=== PATIENT | male | born 1995 | race Caucasian/White ===

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

== ENCOUNTER 2018-12-20 17:23 | Emergency (ER) | payer OTHER ==
[~2018-12-20] VITALS: Ht 193 cm; Wt 129.3 kg
[~2018-12-20 17:23] MED LIST: AMOX1TAB61 PO
--- NOTE | 2018-12-20 17:42 | PHYS DOC ---
Past Medical History Past Medical History: Other Additional Past Medical Histor: "special needs" ([employer]) Past Surgical History: No Surgical History (CHARLIE MACARIO APRN) Alcohol Use: None Drug Use: None (AUSTINCHARLIE Foss APRN) Adult General Chief Complaint Chief Complaint: COUGH HPI HPI Patient is a 23 year old male who presents today ED today complaining of cough nasal congestion and a sore throat that began 3 days ago. Patient denies any fever. (RENALDOCHARLIE APRN) Review of Systems Review of Systems Constitutional: Denies fever or chills [] Eyes: Denies change in visual acuity, redness, or eye pain [] HENT: Reports nasal congestion and sore throat [] Respiratory: Reports cough, denies shortness of breath [] Cardiovascular: No additional information not addressed in HPI [] GI: Denies abdominal pain, nausea, vomiting, bloody stools or diarrhea [] : Denies dysuria or hematuria [] Musculoskeletal: Denies back pain or joint pain [] Integument: Denies rash or skin lesions [] Neurologic: Denies headache, focal weakness or sensory changes [] All other systems were reviewed and found to be within normal limits, except as documented in this note. ([employer]) Allergies Allergies Allergies Coded Allergies Type Severity Reaction Last Updated Verified No Known Drug Allergies 09/03/16 No (ELVA KIM MD) Physical Exam Physical Exam Constitutional: Well developed, well nourished, no acute distress, non-toxic appearance. [] HENT: Normocephalic, atraumatic, bilateral external ears normal, oropharynx moist, no oral exudates, nose normal. [] Eyes: PERRLA, EOMI, conjunctiva normal, no discharge. [] Neck: Normal range of motion, no tenderness, supple, no stridor. [] Cardiovascular:Heart rate regular rhythm, no murmur [] Lungs & Thorax: Bilateral breath sounds clear to auscultation [] Abdomen: Bowel sounds normal, soft, no tenderness, no masses, no pulsatile masses. [] Skin: Warm, dry, no erythema, no rash. [] Back: No tenderness, no CVA tenderness. [] Extremities: No tenderness, no cyanosis, no clubbing, ROM intact, no edema. [] Neurologic: Alert and oriented X 3, normal motor function, normal sensory function, no focal deficits noted. [] Psychologic: Affect normal, judgement normal, mood normal. [] (CHARLIE MACARIO APRN) Current Patient Data Vital Signs Vital Signs Date Time Temp Pulse Resp B/P (MAP) Pulse Ox O2 Delivery O2 Flow Rate FiO2 12/20/18 17:43 98.6 83 16 127/63 (84) 97 Room Air 98.6 (ELVA KIM MD) Lab Values Laboratory Tests Test 12/20/18 18:00 Group A Streptococcus Rapid Negative (NEGATIVE) (ELVA KIM MD) EKG EKG [] (CHARLIE MACARIO APRN) Radiology/Procedures Radiology/Procedures [] (CHARLIE MACARIO APRN) Course & Med Decision Making Course & Med Decision Making Pertinent Labs and Imaging studies reviewed. (See chart for details) This is a 23-year-old male patient presenting to the ED to stay with symptoms consistent of viral illness including cough nasal congestion and a sore throat for 3 days. Patient is afebrile. Negative rapid strep. Supportive care measures recommended. Follow-up with primary care doctor in 1-2 weeks. (CHARLIE MACARIO APRN) Dragon Disclaimer Dragon Disclaimer This electronic medical record was generated, in whole or in part, using a voice recognition dictation system. (CHARLIE MACARIO APRN) Departure Departure Impression: Primary Impression: Cough Additional Impressions: URI (upper respiratory infection) Viral pharyngitis Disposition: 01 HOME, SELF-CARE Condition: STABLE Referrals: JESUS ALLISON MD (PCP) follow up in 1-2 weeks Patient Instructions: Cough, Adult, Lirh-ev-Iael, Upper Respiratory Infection, Adult, Mpvt-qf-Vkyg, Viral and Bacterial Pharyngitis Additional Instructions: You were evaluated in the emergency room for symptoms consistent of a viral illness. Please use [id number] cold medications as needed. You can take Tylenol/Motrin for pain including body aches and fever, follow-up with your own doctor in 1-2 weeks Problem Qualifiers Additional Impressions: URI (upper respiratory infection) URI type: unspecified URI Qualified Codes: J06.9 - Acute upper respiratory infection, unspecified CHARLIE MACARIO APRN Dec 20, 2018 17:42 ELVA KIM MD Dec 21, 2018 18:14
[2018-12-20 17:43] VITALS: BP 127/63
== END 2018-12-20 18:27 | disposition home or self-care (01) ==
LOC: ER 17:23
DX: J02.8 Acute pharyngitis due to other specified organisms (principal); B97.89 Other viral agents as the cause of diseases classified elsewhere
CPT/HCPCS: 87070; 87880; 99283

== ENCOUNTER → 2019-02-25 | Outpatient (CLI) | payer OTHER ==
[~2019-02-25] MED LIST changes: +CIPR500T94 PO; +DICY20TA3 PO; +METR500T PO; +ONDA4TAB12 PO
[2019-02-25 10:13] LABS: ALBUMIN 3.7 g/dL (3.4-5.0); CALCIUM 9.2 mg/dL (8.5-10.1); CREATININE 1.1 mg/dL (0.7-1.3); GFR 84.5; POTASSIUM 4.1 mmol/L (3.5-5.1); TOTAL BILIRUBIN 0.4 mg/dL (0.2-1.0); TOTAL PROTEIN 7.3 g/dL (6.4-8.2)
[2019-02-25 10:18] LABS: BASO % 1 % (0-3); EOS # 0.3 x10^3/uL (0.0-0.7); EOS % 4 % (0-3); HEMATOCRIT 44.4 % (39.0-53.0); HEMOGLOBIN 14.4 g/dL (13.0-17.5); LYMPH % 41 % (24-48); MEAN CORPUSCULAR HEMOGLOBIN 26 pg (25-35); MEAN CORPUSCULAR HGB CONC 32 g/dL (31-37); MEAN CORPUSCULAR VOLUME 81 fL (79-100); MONO # 0.4 x10^3/uL (0.0-1.1); MONO % 6 % (0-9); NEUT # 3.5 x10^3/uL (1.8-7.7); NEUT % 49 % (31-73); PLATELET COUNT 283 x10^3/uL (140-400); RED BLOOD COUNT 5.51 x10^6/uL (4.30-5.70); RED CELL DISTRIBUTION WIDTH 14.8 % (11.5-14.5); WHITE BLOOD COUNT 7.3 x10^3/uL (4.0-11.0)
== END | disposition home or self-care (01) ==
LOC: LAB 09:41
PROVIDERS: ATTEND Psychiatry & Neurology Psychiatry
DX: Z79.899 Other long term (current) drug therapy (principal)
CPT/HCPCS: 36415; 80053; 85025

== ENCOUNTER 2019-03-02 09:17 | Emergency (ER) | payer OTHER ==
[~2019-03-02] VITALS: Ht 193 cm; Wt 132.4 kg
[~2019-03-02 09:17] MED LIST changes: -CIPR500T94 PO; -DICY20TA3 PO; -METR500T PO; -ONDA4TAB12 PO
[2019-03-02] MEDS ORDERED: IV NORMAL SALINE 1000ML BAG 1,000 ML IV ONE (09:45)
[2019-03-02] MEDS ORDERED: fentaNYL PF VIAL 100 MCG/2 ML VIAL IVP ONE (10:00)
[2019-03-02] MEDS ORDERED: ONDANSETRON PF 4 MG/2 ML VIAL. IVP ONE (10:00)
[2019-03-02] MEDS ORDERED: FAMOTIDINE 20 MG/2 ML VIAL IVP ONE (10:00)
[2019-03-02 10:24] LABS: INFLUENZA A PATIENT NEGATIVE (NEGATIVE); INFLUENZA B PATIENT NEGATIVE (NEGATIVE)
[2019-03-02 10:35] LABS: CALCIUM 9.5 mg/dL (8.5-10.1); CREATININE 1.1 mg/dL (0.7-1.3); GFR 84.5; POTASSIUM 3.9 mmol/L (3.5-5.1)
[2019-03-02 10:36] LABS: BASO # 0.1 x10^3/uL (0.0-0.2); BASO % 1 % (0-3); EOS # 0.5 x10^3/uL (0.0-0.7); EOS % 6 % (0-3); HEMATOCRIT 48.5 % (39.0-53.0); HEMOGLOBIN 16.1 g/dL (13.0-17.5); LYMPH # 3.3 x10^3/uL (1.0-4.8); LYMPH % 36 % (24-48); MEAN CORPUSCULAR HEMOGLOBIN 26 pg (25-35); MEAN CORPUSCULAR HGB CONC 33 g/dL (31-37); MEAN CORPUSCULAR VOLUME 80 fL (79-100); MONO # 0.6 x10^3/uL (0.0-1.1); MONO % 7 % (0-9); NEUT # 4.7 x10^3/uL (1.8-7.7); NEUT % 51 % (31-73); PLATELET COUNT 320 x10^3/uL (140-400); RED BLOOD COUNT 6.09 x10^6/uL (4.30-5.70); RED CELL DISTRIBUTION WIDTH 15.3 % (11.5-14.5); WHITE BLOOD COUNT 9.2 x10^3/uL (4.0-11.0)
[2019-03-02 10:41] LABS: ALBUMIN/GLOBULIN RATIO 1.1 (1.0-1.7); TOTAL BILIRUBIN 0.4 mg/dL (0.2-1.0); TOTAL PROTEIN 7.8 g/dL (6.4-8.2)
[2019-03-02] MEDS ORDERED: IOHEXOL 300 MG/ML 100ML VIAL. IV ONE (11:00)
[2019-03-02] MEDS ORDERED: CONTRAST GIVEN. MC PRN (11:15)
--- NOTE | 2019-03-02 11:29 | PHYS DOC ---
Past Medical History Past Medical History: Anxiety, Asthma, Bipolar, GERD, Other Additional Past Medical Histor: "special needs",PTSD,ADHD Past Surgical History: Appendectomy, Other Additional Past Surgical Histo: I-DOCKET,BILAT MYRINGOTOMY W/TUBES Alcohol Use: Occasionally Drug Use: None Adult General Chief Complaint Chief Complaint: EARACHE/EAR PAIN [facility] HPI Patient is a 23 year old male with history of asthma, anxiety, bipolar, developmental delay per mother's report who presents to the ED today with nausea, vomiting, denies abdominal pain as well as right ear pain must symptoms began yesterday. Patient is a poor historian, patient denies any fever, denies any hematemesis. Denies any diarrhea Review of Systems Review of Systems Constitutional: Denies fever or chills [] Eyes: Denies change in visual acuity, redness, or eye pain [] HENT: Denies nasal congestion or sore throat [] Respiratory: Denies cough or shortness of breath [] Cardiovascular: No additional information not addressed in HPI [] GI: Reports abdominal pain, nausea, vomiting, denies bloody stools or diarrhea [] : Denies dysuria or hematuria [] Musculoskeletal: Denies back pain or joint pain [] Integument: Denies rash or skin lesions [] Neurologic: Denies headache, focal weakness or sensory changes [] All other systems were reviewed and found to be within normal limits, except as documented in this note. Current Medications Current Medications Current Medications Medications (Trade) Dose Ordered Sig/Jack Start Time Stop Time Status Last Admin Dose Admin Famotidine (Pepcid Vial) 20 mg 1X ONCE 03/02/19 10:00 03/02/19 10:01 DC 03/02/19 10:33 20 MG Fentanyl Citrate (Fentanyl 2ml Vial) 50 mcg 1X ONCE 03/02/19 10:00 03/02/19 10:01 DC 03/02/19 10:32 50 MCG Info (CONTRAST GIVEN -- Rx MONITORING) 1 each PRN DAILY PRN 03/02/19 11:15 03/02/19 13:14 DC Iohexol (Omnipaque 300 Mg/ml) 75 ml 1X ONCE 03/02/19 11:00 03/02/19 11:01 DC 03/02/19 11:07 75 ML Ondansetron HCl (Zofran) 4 mg 1X ONCE 03/02/19 10:00 03/02/19 10:01 DC 03/02/19 10:31 4 MG Sodium Chloride 1,000 ml @ 1,000 mls/hr 1X ONCE 03/02/19 09:45 03/02/19 10:44 DC 03/02/19 10:30 1,000 MLS/HR Allergies Allergies Allergies Coded Allergies Type Severity Reaction Last Updated Verified No Known Drug Allergies 09/03/16 No Physical Exam Physical Exam Constitutional: Well developed, well nourished, no acute distress, non-toxic appearance. [] HENT: Normocephalic, atraumatic, bilateral external ears normal, oropharynx moist, no oral exudates, nose normal. [] Right TM is mildly injected. Eyes: PERRLA, EOMI, conjunctiva normal, no discharge. [] Neck: Normal range of motion, no tenderness, supple, no stridor. [] Cardiovascular:Heart rate regular rhythm, no murmur [] Lungs & Thorax: Bilateral breath sounds clear to auscultation [] Abdomen: Bowel sounds normal, soft, no tenderness, no masses, no pulsatile masses. [] Skin: Warm, dry, no erythema, no rash. [] Back: No tenderness, no CVA tenderness. [] Extremities: No tenderness, no cyanosis, no clubbing, ROM intact, no edema. [] Neurologic: Alert and oriented X 3, normal motor function, normal sensory function, no focal deficits noted. [] Psychologic: Affect normal, judgement normal, mood normal. [] Current Patient Data Vital Signs Vital Signs Date Time Temp Pulse Resp B/P (MAP) Pulse Ox O2 Delivery O2 Flow Rate FiO2 03/02/19 12:40 60 16 106/58 (74) 96 Room Air 03/02/19 09:31 98.3 98.3 Lab Values Laboratory Tests Test 03/02/19 10:00 03/02/19 10:15 03/02/19 11:30 Influenza Type A Antigen Negative (NEGATIVE) Influenza Type B Antigen Negative (NEGATIVE) White Blood Count 9.2 x10^3/uL (4.0-11.0) Red Blood Count 6.09 x10^6/uL (4.30-5.70) H Hemoglobin 16.1 g/dL (13.0-17.5) Hematocrit 48.5 % (39.0-53.0) Mean Corpuscular Volume 80 fL (79-100) Mean Corpuscular Hemoglobin 26 pg (25-35) Mean Corpuscular Hemoglobin Concent 33 g/dL (31-37) Red Cell Distribution Width 15.3 % (11.5-14.5) H Platelet Count 320 x10^3/uL (140-400) Neutrophils (%) (Auto) 51 % (31-73) Lymphocytes (%) (Auto) 36 % (24-48) Monocytes (%) (Auto) 7 % (0-9) Eosinophils (%) (Auto) 6 % (0-3) H Basophils (%) (Auto) 1 % (0-3) Neutrophils # (Auto) 4.7 x10^3/uL (1.8-7.7) Lymphocytes # (Auto) 3.3 x10^3/uL (1.0-4.8) Monocytes # (Auto) 0.6 x10^3/uL (0.0-1.1) Eosinophils # (Auto) 0.5 x10^3/uL (0.0-0.7) Basophils # (Auto) 0.1 x10^3/uL (0.0-0.2) Sodium Level 141 mmol/L (136-145) Potassium Level 3.9 mmol/L (3.5-5.1) Chloride Level 105 mmol/L (98-107) Carbon Dioxide Level 24 mmol/L (21-32) Anion Gap 12 (6-14) Blood Urea Nitrogen 13 mg/dL (8-26) Creatinine 1.1 mg/dL (0.7-1.3) Estimated GFR (Cockcroft-Gault) 84.5 BUN/Creatinine Ratio 12 (6-20) Glucose Level 99 mg/dL (70-99) Calcium Level 9.5 mg/dL (8.5-10.1) Total Bilirubin 0.4 mg/dL (0.2-1.0) Aspartate Amino Transferase (AST) 23 U/L (15-37) Alanine Aminotransferase (ALT) 27 U/L (16-63) Alkaline Phosphatase 114 U/L (46-116) Total Protein 7.8 g/dL (6.4-8.2) Albumin 4.0 g/dL (3.4-5.0) Albumin/Globulin Ratio 1.1 (1.0-1.7) Lipase 247 U/L (73-393) Urine Collection Type Unknown Urine Color Yellow Urine Clarity Clear Urine pH 8.0 Urine Specific [place] >=1.030 Urine Protein Negative mg/dL (NEG-TRACE) Urine Glucose (UA) Negative mg/dL (NEG) Urine Ketones (Stick) Negative mg/dL (NEG) Urine Blood Negative (NEG) Urine Nitrite Negative (NEG) Urine Bilirubin Negative (NEG) Urine Urobilinogen Dipstick 0.2 mg/dL (0.2 mg/dL) Urine Leukocyte Esterase Negative (NEG) Urine RBC 0 /HPF (0-2) Urine WBC Occ /HPF (0-4) Urine Squamous Epithelial Cells Few /LPF Urine Amorphous Sediment Present /HPF Urine Bacteria 0 /HPF (0-FEW) Urine Mucus Slight /LPF Laboratory Tests 03/02/19 10:15 Laboratory Tests 03/02/19 10:15 EKG EKG [] Radiology/Procedures Radiology/Procedures []PROCEDURE: CT ABD PELV W/ IV CONTRST ONLY CT ABD PELV W/ IV CONTRST ONLY History: Abdominal pain nausea and vomiting. Technique: After the administration of intravenous contrast, CT imaging was performed of the abdomen and pelvis. Multiplanar images are reviewed. Exposure: One or more of the following individualized dose reduction techniques were utilized for this examination: 1. Automated exposure control 2. Adjustment of the mA and/or kV according to patient size 3. Use of iterative reconstruction technique. Comparison: None Findings: Lower chest: No consolidation or pleural effusion. Partially imaged cystic structure along the anterior left pericardium. Abdomen and pelvis: The liver, spleen, adrenal glands, and pancreas are unremarkable. Normal appearance of the kidneys. No hydronephrosis. No renal calculi. Increased density within the gallbladder neck, may represent cholelithiasis. No gallbladder wall thickening or pericholecystic fluid. Prior appendectomy. No evidence of bowel obstruction. Several regions of apparent colonic wall thickening within the sigmoid colon, rectum and descending colon. Multiple small mesenteric lymph nodes. No ascites. Decompressed urinary bladder. Tiny free fluid within the pelvis. Bones: No pathologic osseous lesions. Impression: 1. Increased density within the gallbladder neck, may represent cholelithiasis. No gallbladder wall thickening or pericholecystic fluid. 2. Several regions of apparent colonic wall thickening, may relate to nondistention. Correlate for colitis. 3. Multiple small mesenteric lymph nodes, likely reactive. 4. Tiny free fluid within the pelvis. 5. Partially imaged pericardial cyst. Electronically signed by: Hay Kennedy DO (03/02/2019 11:51 AM) [facility] DICTATED and SIGNED BY: HAY KENNEDY DO DATE: 03/02/19 1153 Course & Med Decision Making Course & Med Decision Making Pertinent Labs and Imaging studies reviewed. (See chart for details) This is a 23 year old male with otitis media as well n/v and abd pain. CBC, CMP with no acute findings. UA negative. White count is influenza A and B is negative. CT of the abdomen and pelvic is noted for possible cholelithiasis and colitis. Results discussed with mother on the phone. They will follow-up with general surgery as well as PCP. Prescription sent to the pharmacy Carly Disclaimer Dragon Disclaimer This electronic medical record was generated, in whole or in part, using a voice recognition dictation system. Departure Departure Impression: Primary Impression: Otitis media Additional Impressions: Colitis Cholelithiases Disposition: HOME, SELF-CARE Condition: STABLE Referrals: RAJINDER GRANT MD (PCP) follow up next week VILLA BERNAL MD follow up in 1-2 weeks Patient Instructions: Cholelithiasis, Colitis, Otitis Media with Effusion Additional Instructions: You have ear infection. Your CT of the abdomen and pelvis was noted for possible gallbladder disease, colitis among other things. Please follow up with your primary care doctor in 1-2 weeks and show your doctor the results so that she/he can follow up. We provided you a general surgeon to follow up with for gall bladder disease he might consider doing an outpatient gall bladder ultrasound to look at the gallbladder. Please call his office in the next 1-2 weeks and follow up. Your prescriptions were sent to your local pharmacy Scripts Ondansetron (ONDANSETRON ODT) 4 Mg Tab.rapdis 1 TAB PO PRN Q6-8HRS, #16 TAB Prov: MUTCHARLIE GLASS [employer] YARD MANAGER 03/02/19 Dicyclomine Hcl (DICYCLOMINE HCL) 20 Mg Tablet 1 TAB PO TID, #30 TAB 1 Refill Prov: MUTUNGACHARLIE LOG YARD MANAGER 03/02/19 Metronidazole (FLAGYL) 500 Mg Tablet 500 MG PO TID, #21 TAB Prov: MUTUNGACHARLIE LOG YARD MANAGER 03/02/19 Ciprofloxacin Hcl (CIPRO) 500 Mg Tablet 1 TAB PO BID for 7 Days, #14 TAB 0 Refills Prov: CHARLIE MACARIO APRN 03/02/19 Problem Qualifiers Primary Impression: Otitis media Otitis media type: other nonsuppurative Chronicity: acute Laterality: bilateral Recurrence: non-recurrent Qualified Codes: H65.193 - Other acute nonsuppurative otitis media, bilateral Additional Impressions: Cholelithiases Cholelithiasis location: gallbladder Cholecystitis presence: without cholecystitis Biliary obstruction: without biliary obstruction Qualified Codes: K80.20 - Calculus of gallbladder without cholecystitis without obst ruction CHARLIE MACARIO APRN Mar 02, 2019 11:29
[2019-03-02 11:46] LABS: BILIRUBIN,URINE NEGATIVE (NEG); CLARITY,URINE CLEAR; COLOR,URINE YELLOW; NITRITE,URINE NEGATIVE (NEG); PROTEIN,URINE NEGATIVE (NEG-TRACE); UROBILINOGEN,URINE 0.2 mg/dL (0.2 mg/dL)
--- NOTE | 2019-03-02 11:53 | RAD ---
CT ABD PELV W/ IV CONTRST ONLY History: Abdominal pain nausea and vomiting. Technique: After the administration of intravenous contrast, CT imaging was performed of the abdomen and pelvis. Multiplanar images are reviewed. Exposure: One or more of the following individualized dose reduction techniques were utilized for this examination: 1. Automated exposure control 2. Adjustment of the mA and/or kV according to patient size 3. Use of iterative reconstruction technique. Comparison: None Findings: Lower chest: No consolidation or pleural effusion. Partially imaged cystic structure along the anterior left pericardium. Abdomen and pelvis: The liver, spleen, adrenal glands, and pancreas are unremarkable. Normal appearance of the kidneys. No hydronephrosis. No renal calculi. Increased density within the gallbladder neck, may represent cholelithiasis. No gallbladder wall thickening or pericholecystic fluid. Prior appendectomy. No evidence of bowel obstruction. Several regions of apparent colonic wall thickening within the sigmoid colon, rectum and descending colon. Multiple small mesenteric lymph nodes. No ascites. Decompressed urinary bladder. Tiny free fluid within the pelvis. Bones: No pathologic osseous lesions. Impression: 1. Increased density within the gallbladder neck, may represent cholelithiasis. No gallbladder wall thickening or pericholecystic fluid. 2. Several regions of apparent colonic wall thickening, may relate to nondistention. Correlate for colitis. 3. Multiple small mesenteric lymph nodes, likely reactive. 4. Tiny free fluid within the pelvis. 5. Partially imaged pericardial cyst. Electronically signed by: Hay Dotson DO (03/02/2019 11:51 AM) [facility]
[2019-03-02 12:01] LABS: SQUAMOUS EPITHELIAL CELL,UR FEW /LPF
[2019-03-02 12:02] LABS: AMORPHOUS SEDIMENT,UR PRESENT /HPF; BACTERIA,URINE 0 /HPF (0-FEW); RBC,URINE 0 /HPF (0-2); WBC,URINE OCC /HPF (0-4)
[2019-03-02] MEDS ORDERED: METR500T PO ×2 (12:30→12:36)
[2019-03-02] MEDS ORDERED: DICY20TA3 PO ×2 (12:30→12:36)
[2019-03-02] MEDS ORDERED: CIPR500T94 PO ×2 (12:30→12:36)
[2019-03-02] MEDS ORDERED: ONDA4TAB12 PO ×2 (12:30→12:36)
[2019-03-02 12:40] VITALS: BP 106/58
== END 2019-03-02 12:57 | disposition home or self-care (01) ==
LOC: ER 09:17
DX: K52.9 Noninfective gastroenteritis and colitis, unspecified (principal); K80.20 Calculus of gallbladder without cholecystitis without obstruction; H66.92 Otitis media, unspecified, left ear; J45.909 Unspecified asthma, uncomplicated; F31.9 Bipolar disorder, unspecified; K21.9 Gastro-esophageal reflux disease without esophagitis; Z90.89 Acquired absence of other organs
CPT/HCPCS: 36415; 74177; 80053; 81001; 83690; 85025; 87804; 96361; 96374; 96375; 99285; J2405; J3010; J3490; J7030; Q9967

== ENCOUNTER → 2019-04-22 | Day surgery (SDC) | payer OTHER ==
[~2019-04-22] MED LIST changes: +CETI10TA16 PO; +CIPR500T94 PO; +CITA20TA6 PO; +DICY20TA3 PO; +FLUT15.812 NS; +GUAN1TAB PO; +IV RINGERS,LACTATED 1000ML 1,000 ML IV ONE; +LIDOCAINE 2% PF 5 ML VIAL. ONE; +METR500T PO; +NALT50TA PO; +ONDA4TAB12 PO; +PANT20TA2 PO; +PRAZ5CAP2 PO; +PROPOFOL 40 ML IV ONE; +RANI150T2 PO; +TOPI100T8 PO
[2019-04-22 09:02] VITALS: BP 107/67
--- NOTE | 2019-04-25 14:06 | PATHOLOGY ---
[facility] Accession Number: [id number] . 01 Material submitted: . colon - RANDOM COLON BX . 01 Clinical history: . Abdominal pain . 02 Diagnosis: Colonic mucosa "random colon biopsies": - No obvious diagnostic changes. - There is no evidence of acute cryptitis, granulomas, adenomatous change, changes of microscopic colitis, or malignancy. (SHA:rj; 04/25/2019) QMS 04/25/2019 0938 Local . 02 Electronically signed: . Jorge Oreilly MD, Pathologist NPI- [id number] . 01 Gross description: . Received in formalin labeled "Tracy Villagran, random colon BX, rule out microscopic colitis," are multiple segments of onofre soft tissue measuring 2.0 x 0.6 x 0.1 cm in aggregate dimensions. The specimen is filtered and entirely submitted in cassette A1. (TSD; 04/22/2019) TOB/TOB 04/25/2019 0937 Local . 02 Pathologist provided ICD-10: R10.9 . 02 CPT . 760053 Specimen Comment: A courtesy copy of this report has been sent to [phone], [phone] Specimen Comment: [id number] Specimen Comment: Report sent to / DR ALLISON Specimen Comment: A duplicate report has been generated due to demographic updates. Performed at: 01 [facility] [address], [place] [id number] MD Otoniel Mcleod MD Phone: [phone] Performed at: 02 [facility] [address] [place], [place] [id number] MD Ernesto Gill MD Phone: [phone]
== END ==
LOC: ENDOS 06:39
PROVIDERS: ATTEND Internal Medicine Gastroenterology
DX: K52.9 Noninfective gastroenteritis and colitis, unspecified (principal); K29.50 Unspecified chronic gastritis without bleeding; K64.0 First degree hemorrhoids; F41.9 Anxiety disorder, unspecified; F15.90 Other stimulant use, unspecified, uncomplicated; F17.210 Nicotine dependence, cigarettes, uncomplicated; Z98.890 Other specified postprocedural states; Z88.8 Allergy status to other drugs, medicaments and biological substances; Z72.89 Other problems related to lifestyle
CPT/HCPCS: 43235; 45380; 88305; J2001; J2704

== ENCOUNTER 2019-04-29 12:40 | Emergency (ER) | payer OTHER ==
[~2019-04-29] VITALS: Ht 190.5 cm; Wt 124.7 kg
[~2019-04-29 12:40] MED LIST changes: -IV RINGERS,LACTATED 1000ML 1,000 ML IV ONE; -LIDOCAINE 2% PF 5 ML VIAL. ONE; -PROPOFOL 40 ML IV ONE
[2019-04-29 14:14] LABS: BASO # 0.1 x10^3/uL (0.0-0.2); BASO % 1 % (0-3); EOS # 0.2 x10^3/uL (0.0-0.7); EOS % 3 % (0-3); HEMATOCRIT 44.2 % (39.0-53.0); HEMOGLOBIN 14.4 g/dL (13.0-17.5); LYMPH # 3.2 x10^3/uL (1.0-4.8); LYMPH % 38 % (24-48); MEAN CORPUSCULAR HEMOGLOBIN 26 pg (25-35); MEAN CORPUSCULAR HGB CONC 33 g/dL (31-37); MEAN CORPUSCULAR VOLUME 81 fL (79-100); MONO # 0.6 x10^3/uL (0.0-1.1); MONO % 7 % (0-9); NEUT # 4.5 x10^3/uL (1.8-7.7); NEUT % 52 % (31-73); PLATELET COUNT 261 x10^3/uL (140-400); RED BLOOD COUNT 5.48 x10^6/uL (4.30-5.70); RED CELL DISTRIBUTION WIDTH 15.9 % (11.5-14.5); WHITE BLOOD COUNT 8.6 x10^3/uL (4.0-11.0)
--- NOTE | 2019-04-29 14:27 | RAD ---
EXAM: Abdomen acute complete. HISTORY: Pain. COMPARISON: None. FINDINGS: A frontal view of the chest and frontal upright and supine views of abdomen are obtained. There is no infiltrate, pleural effusion or pneumothorax. The heart is normal in size. There are nonspecific loops of bowel within the abdomen. There is no obstruction. There is no free air. IMPRESSION: Nonobstructive bowel gas pattern. No acute pulmonary finding. Electronically signed by: Elsie Yoon MD (04/29/2019 2:24 PM) [place] [id number]
[2019-04-29 14:32] LABS: CALCIUM 9.1 mg/dL (8.5-10.1); GFR 94.3; POTASSIUM 3.6 mmol/L (3.5-5.1)
[2019-04-29 14:38] LABS: ALBUMIN 3.7 g/dL (3.4-5.0); ALBUMIN/GLOBULIN RATIO 1.1 (1.0-1.7); TOTAL BILIRUBIN 0.4 mg/dL (0.2-1.0); TOTAL PROTEIN 7.1 g/dL (6.4-8.2)
[2019-04-29 16:45] VITALS: BP 111/55
--- NOTE | 2019-05-02 18:22 | PHYS DOC ---
Past Medical History Past Medical History: Anxiety, Asthma, Bipolar, GERD, Other Additional Past Medical Histor: "special needs",PTSD,ADHD Past Surgical History: Appendectomy, Other Additional Past Surgical Histo: I-DOCKET,BILAT MYRINGOTOMY W/TUBES Additional Information: 1/ppd Alcohol Use: Occasionally Drug Use: None Adult General Chief Complaint Chief Complaint: ABDOMINAL PAIN HPI HPI Patient is a 23 male who presents with abdominal cramping, bloating complaints of constipation. Last bowel movement was several days ago. Patient ports bright red bleeding with straining. Denies dizziness lightheadedness, flank pain. No fever chills or sweats. No other vomiting. No other acute symptoms or complaints.[] Review of Systems Review of Systems Review symptoms as urge. All other systems were reviewed and found to be within normal limits, except as documented in this note. Allergies Allergies Allergies Coded Allergies Type Severity Reaction Last Updated Verified No Known Drug Allergies 04/22/19 No Physical Exam Physical Exam Constitutional: Well developed, well nourished, no acute distress, non-toxic appearance. [] HENT: Normocephalic, atraumatic, bilateral external ears normal, oropharynx moist, nose normal. [] Eyes: PERRLA, EOMI, conjunctiva normal, no discharge. [] Neck: Normal range of motion, no tenderness, supple. [] Cardiovascular:Heart rate regular rhythm, no murmur [] Lungs & Thorax: Bilateral breath sounds clear to auscultation [] Abdomen: Bowel sounds normal, soft, no distention, increased bowel sounds.. [] Skin: Warm, dry, no erythema. [] Back: No tenderness. [] Extremities: No tenderness, no edema. [] Neurologic: Alert and oriented X 3, normal motor function, normal sensory function, no focal deficits noted. [] Psychologic: Affect normal, judgement normal, mood normal. [] Current Patient Data Vital Signs Vital Signs Date Time Temp Pulse Resp B/P (MAP) Pulse Ox O2 Delivery O2 Flow Rate FiO2 04/29/19 16:45 72 18 111/55 (73) 98 Room Air 04/29/19 13:15 98.8 98.8 Lab Values Laboratory Tests Test 04/29/19 14:00 White Blood Count 8.6 x10^3/uL (4.0-11.0) Red Blood Count 5.48 x10^6/uL (4.30-5.70) Hemoglobin 14.4 g/dL (13.0-17.5) Hematocrit 44.2 % (39.0-53.0) Mean Corpuscular Volume 81 fL (79-100) Mean Corpuscular Hemoglobin 26 pg (25-35) Mean Corpuscular Hemoglobin Concent 33 g/dL (31-37) Red Cell Distribution Width 15.9 % (11.5-14.5) H Platelet Count 261 x10^3/uL (140-400) Neutrophils (%) (Auto) 52 % (31-73) Lymphocytes (%) (Auto) 38 % (24-48) Monocytes (%) (Auto) 7 % (0-9) Eosinophils (%) (Auto) 3 % (0-3) Basophils (%) (Auto) 1 % (0-3) Neutrophils # (Auto) 4.5 x10^3/uL (1.8-7.7) Lymphocytes # (Auto) 3.2 x10^3/uL (1.0-4.8) Monocytes # (Auto) 0.6 x10^3/uL (0.0-1.1) Eosinophils # (Auto) 0.2 x10^3/uL (0.0-0.7) Basophils # (Auto) 0.1 x10^3/uL (0.0-0.2) Sodium Level 141 mmol/L (136-145) Potassium Level 3.6 mmol/L (3.5-5.1) Chloride Level 107 mmol/L (98-107) Carbon Dioxide Level 25 mmol/L (21-32) Anion Gap 9 (6-14) Blood Urea Nitrogen 13 mg/dL (8-26) Creatinine 1.0 mg/dL (0.7-1.3) Estimated GFR (Cockcroft-Gault) 94.3 BUN/Creatinine Ratio 13 (6-20) Glucose Level 101 mg/dL (70-99) H Calcium Level 9.1 mg/dL (8.5-10.1) Total Bilirubin 0.4 mg/dL (0.2-1.0) Aspartate Amino Transferase (AST) 25 U/L (15-37) Alanine Aminotransferase (ALT) 32 U/L (16-63) Alkaline Phosphatase 95 U/L (46-116) Total Protein 7.1 g/dL (6.4-8.2) Albumin 3.7 g/dL (3.4-5.0) Albumin/Globulin Ratio 1.1 (1.0-1.7) Laboratory Tests 04/29/19 14:00 Laboratory Tests 04/29/19 14:00 EKG EKG [] Radiology/Procedures Radiology/Procedures [Abdominal series: No fluid levels or free air.] Course & Med Decision Making Course & Med Decision Making Pertinent Labs and Imaging studies reviewed. (See chart for details) [Patient has previously been scoped by Dr. Zhang. Recommendations are for GI follow up.] Dragon Disclaimer Dragon Disclaimer This electronic medical record was generated, in whole or in part, using a voice recognition dictation system. Departure Departure Impression: Primary Impression: Constipation Additional Impression: Rectal bleeding Disposition: 01 HOME, SELF-CARE Condition: STABLE Patient Instructions: Rectal Bleeding, Constipation, Adult, [id number] Additional Instructions: Drink 2 bottles of mag citrate twice daily for the next 3 days and use fleets enema as needed for constipation. Contact Dr. Zhang next week if rectal bleeding continues. Follow-up with your PCP as needed for additional concerns. Problem Qualifiers THADDEUS RESENDIZ DO May 02, 2019 18:22
== END 2019-04-29 16:55 | disposition home or self-care (01) ==
LOC: ER 12:40
DX: K62.5 Hemorrhage of anus and rectum (principal); K59.00 Constipation, unspecified; K21.9 Gastro-esophageal reflux disease without esophagitis; F31.9 Bipolar disorder, unspecified; J45.909 Unspecified asthma, uncomplicated; Z90.89 Acquired absence of other organs; F17.200 Nicotine dependence, unspecified, uncomplicated
CPT/HCPCS: 36415; 74022; 80053; 85025; 99285-25

== ENCOUNTER → 2019-05-05 | Outpatient (CLI) | payer OTHER ==
[2019-04-29 16:45] VITALS: BP 111/55
--- NOTE | 2019-05-05 08:15 | RAD ---
Examination: ABDOMEN LTD History: Left upper quadrant pain, bowel tenderness Comparison/Correlation: 03/02/2019 CT abdomen and pelvis with contrast Findings: Limited right upper quadrant ultrasound exam was performed. Mild fatty infiltration of the liver is noted. Portal venous flow is evident. Gallbladder wall thickness is up to 0.6 cm diameter. Gallbladder is decompressed. No cholelithiasis. Minimal pericholecystic fluid suggested. Tenderness of the right upper quadrant. Common bile duct is normal. Liver length is 17.2 cm. Right kidney measures 11.40 x 5.1 cm x 4.9 cm. No right hydronephrosis. No contour is normal. Proximal pancreas is unremarkable. Distal pancreas is obscured by bowel gas. Inferior vena cava is unremarkable. Impression: Gallbladder is decompressed which may account for thickening of the gallbladder wall. Minimal pericholecystic fluid is suggested with right upper quadrant tenderness upon ultrasound examination. Correlate for possibility of cholecystitis. No biliary dilatation. Fatty infiltration of the liver. Electronically signed by: Saulo Munoz MD (05/05/2019 8:12 AM) [facility]
== END | disposition home or self-care (01) ==
LOC: US 07:15
PROVIDERS: ATTEND Surgery
DX: K76.0 Fatty (change of) liver, not elsewhere classified (principal); K82.8 Other specified diseases of gallbladder
CPT/HCPCS: 76705

== ENCOUNTER 2019-06-03 19:42 | Emergency (ER) | payer SELFPAY ==
[~2019-06-03] VITALS: Ht 193 cm; Wt 125.0 kg
[2019-06-03 20:28] VITALS: BP 135/62
--- NOTE | 2019-06-03 22:19 | PHYS DOC ---
Past Medical History Past Medical History: Anxiety, Asthma, Bipolar, GERD, Other Additional Past Medical Histor: "special needs",PTSD,ADHD (SHEILA ENGLISH APRN) Past Surgical History: Appendectomy, Other Additional Past Surgical Histo: I-DOCKET,BILAT MYRINGOTOMY W/TUBES (SHEILA ENGLISH APRN) Alcohol Use: Occasionally Drug Use: None (SHEILA ENGLISH APRN) Attending Signature I have participated in the care of this patient and I have reviewed and agree with all pertinent clinical information above including history, exam, and recommendations. (SUJATA MARIANO MD) Adult General Chief Complaint Chief Complaint: WRIST PAIN [facility] HPI Patient is a 23 year old male who presents with right hand and wrist pain after punching a wall. This happened prior to arrival. Patient rates his pain as 3 out of 10 in severity and sharp. States the pain is better after putting ice on it. He punched a wall because he got mad. Denies any additional complaints. Complete ROS were reviewed and found to be within normal limits, except as documented in the HPI (SHEILA ENGLISH APRN) Allergies Allergies Allergies Coded Allergies Type Severity Reaction Last Updated Verified No Known Drug Allergies 04/22/19 No (SUJATA MARIANO MD) Physical Exam Physical Exam Constitutional: Well developed, well nourished, no acute distress, non-toxic appearance. [] HENT: Normocephalic, atraumatic, bilateral external ears normal, oropharynx moist, no oral exudates, nose normal. [] Extremities: Tenderness to R hand, no edema, neurovascular intact. Neurologic: Alert and oriented X 3, normal motor function, normal sensory function, no focal deficits noted. [] Psychologic: Affect normal, judgement normal, mood normal. [] (SHEILA ENGLISH APRN) Current Patient Data Vital Signs Vital Signs Date Time Temp Pulse Resp B/P (MAP) Pulse Ox O2 Delivery O2 Flow Rate FiO2 06/03/19 20:28 98.4 64 16 135/62 (86) 98 Room Air 98.4 (SUJATA MARIANO MD) EKG EKG [] (SHEILA ENGLISH APRN) Radiology/Procedures Radiology/Procedures [] (SHEILA ENGLISH APRN) Course & Med Decision Making Course & Med Decision Making Pertinent Labs and Imaging studies reviewed. (See chart for details) Will get imaging. No obvious fracture or dislocation on x-ray. Will d/c home. (SHEILA ENGLISH APRN) Dragon Disclaimer Dragon Disclaimer This electronic medical record was generated, in whole or in part, using a voice recognition dictation system. (SHEILA ENGLISH APRN) Departure Departure Impression: Primary Impression: Right hand pain Disposition: HOME, SELF-CARE Condition: STABLE Referrals: JESUS ALLISON MD (PCP) Patient Instructions: Hand Contusion Additional Instructions: Thank you for visiting [facility]. We appreciate you trusting us with your care. If any additional problems come up don't hesitate to return to visit us. Please follow up with your primary care provider so they can plan additional care if needed and know about the problem that you had. If symptoms worsen come back to the Emergency Department. Any concerning symptoms that start such as chest pain, shortness of air, weakness or numbness on one side of the body, running high fevers or any other concerning symptoms return to the ER. SHEILA ENGLISH APRN Jun 03, 2019 22:19 SUJATA MARIANO MD Jun 04, 2019 03:49
--- NOTE | 2019-06-03 22:37 | RAD ---
Examination: 3 views of the right wrist and right hand HISTORY: History of punched a wall COMPARISON: None available FINDINGS: The alignment of the carpal bones grossly appears unremarkable. The alignment of the carpal metacarpal joints, metacarpophalangeal joints, interphalangeal joints grossly appears unremarkable. There is no obvious acute fracture identified. IMPRESSION: No acute osseous findings. Electronically signed by: Cristo Sandoval MD (06/03/2019 10:34 PM) [id number]
== END 2019-06-03 22:44 | disposition home or self-care (01) ==
LOC: ER 19:42
DX: M79.641 Pain in right hand (principal); M25.531 Pain in right wrist; F31.9 Bipolar disorder, unspecified; J45.909 Unspecified asthma, uncomplicated; F43.10 Post-traumatic stress disorder, unspecified; K21.9 Gastro-esophageal reflux disease without esophagitis; F90.9 Attention-deficit hyperactivity disorder, unspecified type
CPT/HCPCS: 73110; 73130; 99284

== ENCOUNTER 2019-06-13 23:39 | Emergency (ER) | payer OTHER ==
[~2019-06-13] VITALS: Ht 190.5 cm; Wt 125.0 kg
[2019-06-14] MEDS ORDERED: ONDANSETRON ODT 4 MG TAB.RAPDIS. PO ONE (01:15)
[2019-06-14] MEDS ORDERED: LIDO:MAALOX 1:1 20 ML SINGLE DOSE. SWSW ONE (01:15)
[2019-06-14] MEDS ORDERED: FAMOTIDINE 20 MG TABLET. PO ONE (01:15)
[2019-06-14] MEDS ORDERED: ONDA4TAB7 PO (01:20)
[2019-06-14] MEDS ORDERED: FAMO-63 PO (01:20)
--- NOTE | 2019-06-14 01:20 | PHYS DOC ---
Past Medical History Past Medical History: Anxiety, Asthma, Bipolar, GERD, Other Additional Past Medical Histor: "special needs",PTSD,ADHD Past Surgical History: Appendectomy, Other Additional Past Surgical Histo: I-DOCKET,BILAT MYRINGOTOMY W/TUBES Smoking Status: Current Every Day Smoker Alcohol Use: Occasionally Drug Use: None Adult General Chief Complaint Chief Complaint: ABDOMINAL PAIN HPI HPI Patient is a 23 year old male with history of cardiac presents with epigastric pain nausea and vomiting after eating. Gastric is nonradiating described sharp rated moderate to severe and worse with palpation and food. Symptoms occurred twice over the past 2 days after eating spicy foods. Vomitus contained stomach contents was nonbilious and nonbloody. Patient denies back pain. Denies fevers chills, sweats, but she is again melena. Patient is not currently on antacid medications. Patient's nonsmoker and does not drink alcohol. No prior abdominal surgeries. No other symptoms or complaints.[] Review of Systems Review of Systems ROS as per HPI All other systems were reviewed and found to be within normal limits, except as documented in this note. Allergies Allergies Allergies Coded Allergies Type Severity Reaction Last Updated Verified No Known Drug Allergies 04/22/19 No Physical Exam Physical Exam Constitutional: Well developed, well nourished, no acute distress, non-toxic jose earance. [] HENT: Normocephalic, atraumatic, bilateral external ears normal, oropharynx moist, nose normal. [] Eyes: PERRLA, EOMI, conjunctiva normal, no discharge. [] Neck: Normal range of motion, no tenderness. [] Cardiovascular:Heart rate regular rhythm, no murmur [] Lungs & Thorax: Bilateral breath sounds clear to auscultation. [] Abdomen: Bowel sounds normal, soft, epigastric pain/ttp. [] Skin: Warm, dry, no erythema, no rash. [] Back: No tenderness, no CVA tenderness. [] Extremities: No tenderness, no cyanosis, no clubbing, ROM intact, no edema. [] Neurologic: Alert and oriented X 3, normal motor function, normal sensory function, no focal deficits noted. [] Psychologic: Affect normal, judgement normal, mood normal. [] Current Patient Data Vital Signs Vital Signs Date Time Temp Pulse Resp B/P (MAP) Pulse Ox O2 Delivery O2 Flow Rate FiO2 06/14/19 00:55 97.5 96 13 129/81 (97) 98 Room Air 97.5 EKG EKG [] Radiology/Procedures Radiology/Procedures [] Course & Med Decision Making Course & Med Decision Making Pertinent Labs and Imaging studies reviewed. (See chart for details) [Acute gastritis. Symptoms improved with tx. Recommend PCP supportive air with waiting and PCP follow up. Return precautions reviewed.] Dragon Disclaimer Dragon Disclaimer This electronic medical record was generated, in whole or in part, using a voice recognition dictation system. Departure Departure Impression: Primary Impression: Abdominal pain Additional Impression: Nausea & vomiting Disposition: HOME, SELF-CARE Condition: GOOD Referrals: JESUS ALLISON MD (PCP) Patient Instructions: Gastritis, Adult Additional Instructions: Please avoid spicy foods, caffeine , alcohol and eating in the evening prior to bedtime. Take newly prescribed medications as directed and follow-up with your P CP in 3-5 days for reevaluation. Return to the ED if new or worsening symptoms. Scripts Famotidine (PEPCID) 20 Mg Tablet 20 MG PO BID, #30 TAB Prov: THADDEUS RESENDIZ DO 06/14/19 Ondansetron Hcl (ZOFRAN) 4 Mg Tablet 1 TAB PO Q6HRS, #10 TAB 0 Refills Prov: THADDEUS RESENDIZ DO 06/14/19 Problem Qualifiers THADDEUS RESENDIZ DO Jun 14, 2019 01:20
[2019-06-14 02:30] VITALS: BP 121/58
== END 2019-06-14 02:33 | disposition home or self-care (01) ==
LOC: ER 23:39
DX: R10.13 Epigastric pain (principal); R11.2 Nausea with vomiting, unspecified; F31.9 Bipolar disorder, unspecified; K21.9 Gastro-esophageal reflux disease without esophagitis; J45.909 Unspecified asthma, uncomplicated; Z90.89 Acquired absence of other organs; F17.200 Nicotine dependence, unspecified, uncomplicated
CPT/HCPCS: 99284; Q0162

== ENCOUNTER 2019-07-11 08:45 | Emergency (ER) | payer OTHER ==
[~2019-07-11] VITALS: Ht 193 cm; Wt 122.7 kg
[~2019-07-11 08:45] MED LIST changes: +FAMO-63 PO; +ONDA4TAB7 PO
[2019-07-11] MEDS ORDERED: ONDA4TAB12 PO (09:26)
[2019-07-11] MEDS ORDERED: DICY10CA3 PO (09:26)
--- NOTE | 2019-07-11 09:26 | PHYS DOC ---
Past Medical History Past Medical History: Anxiety, Asthma, Bipolar, GERD, Other Additional Past Medical Histor: "special needs",PTSD,ADHD (HSEILA ENGLISH APRN) Past Surgical History: Appendectomy, Other Additional Past Surgical Histo: I-DOCKET,BILAT MYRINGOTOMY W/TUBES (SHEILA ENGLISH APRN) Smoking Status: Current Every Day Smoker Alcohol Use: Occasionally Drug Use: None (SHEILA ENGLISH APRN) Adult General Chief Complaint Chief Complaint: ABDOMINAL PAIN [facility] HPI Patient is a 23 year old male who presents with nausea, vomiting, diarrhea this been ongoing since 620 this morning when he woke up. Patient states he is also been having abdominal cramping that started last night and states that he woke up multiple times during the night because his stomach was churning. The patient reports his pain is 6 out of 10 in severity and sharp. Denies fever, cough, runny nose, sore throat, any other symptoms. Complete ROS were reviewed and found to be within normal limits, except as docum ented in the HPI (SHEILA ENGLISH APRN) Current Medications Current Medications Current Medications Medications (Trade) Dose Ordered Sig/Jack Start Time Stop Time Status Last Admin Dose Admin Dicyclomine HCl (Bentyl) 20 mg 1X ONCE 07/11/19 09:30 3 09:31 DC 07/11/19 09:27 20 MG Ondansetron HCl (Zofran Odt) 4 mg 1X ONCE 07/11/19 09:30 07/11/19 09:31 DC 07/11/19 09:26 4 MG (SHEILA NUÑEZ DO) Allergies Allergies Allergies Coded Allergies Type Severity Reaction Last Updated Verified No Known Drug Allergies 04/22/19 No (SHEILA NUÑEZ DO) Physical Exam Physical Exam Constitutional: Well developed, well nourished, no acute distress, non-toxic appearance. [] HENT: Normocephalic, atraumatic, bilateral external ears normal, oropharynx moist, no oral exudates, nose normal. [] Eyes: PERRLA, EOMI, conjunctiva normal, no discharge. [] Neck: Normal range of motion, no tenderness, supple, no stridor. [] Cardiovascular:Heart rate regular rhythm, no murmur [] Lungs & Thorax: Bilateral breath sounds clear to auscultation [] Abdomen: Bowel sounds hyperactive, soft, no tenderness, no masses, no pulsatile masses. [] Neurologic: Alert and oriented X 3, normal motor function, normal sensory function, no focal deficits noted. [] Psychologic: Affect normal, judgement normal, mood normal. [] (SHEILA ENGLISH APRN) Current Patient Data Vital Signs Vital Signs Date Time Temp Pulse Resp B/P (MAP) Pulse Ox O2 Delivery O2 Flow Rate FiO2 07/11/19 09:31 68 16 122/58 (79) 97 Room Air 07/11/19 09:05 98.1 98.1 (SHEILA NUÑEZ DO) EKG EKG [] (SHEILA ENGLISH APRN) Radiology/Procedures Radiology/Procedures [] (SHEILA ENGLISH APRN) Course & Med Decision Making Course & Med Decision Making Pertinent Labs and Imaging studies reviewed. (See chart for details) The patient likely has a stomach virus. Discussed symptoms with the patient and that he could be contagious, and also that this could take several days to resolve. Discussed that anti-diarrheas could make the symptoms last longer. Discussed that I will give him ODT Zofran, and Bentyl. Patient will go home and rest and drink plenty of fluids. Return precautions given. (SHEILA ENGLISH APRN) Dragon Disclaimer Dragon Disclaimer This electronic medical record was generated, in whole or in part, using a voice recognition dictation system. (SHEILA ENGLISH APRN) Departure Departure Impression: Primary Impression: Nausea & vomiting Additional Impression: Diarrhea Disposition: 01 HOME, SELF-CARE Condition: STABLE Referrals: JESUS ALLISON MD (PCP) Patient Instructions: Viral Gastroenteritis Additional Instructions: Thank you for visiting [facility]. We appreciate you trusting us with your care. If any additional problems come up don't hesitate to return to visit us. Please follow up with your primary care provider so they can plan additional care if needed and know about the problem that you had. If symptoms worsen come back to the Emergency Department. Any concerning symptoms that start such as chest pain, shortness of air, weakness or numbness on one side of the body, running high fevers or any other concerning symptoms return to the ER. Please fill your medications at any pharmacy and follow the prescription in structions. Scripts Ondansetron (ONDANSETRON ODT) 4 Mg Tab.rapdis 1 TAB PO PRN Q6-8HRS PRN for NAUSEA, #20 TAB Prov: SHEILA ENGLISH APRN 07/11/19 Dicyclomine Hcl (DICYCLOMINE HCL) 10 Mg Capsule 1 CAP PO PRN Q6HRS PRN for PAIN, #20 CAP 0 Refills Prov: SHEILA ENGLISH APRN 07/11/19 Attending Signature Attending Signature I have reviewed the PA/RECYCLING PROGRAM MANAGER's note and plan of care. I was available for consultation as needed during the patient's visit in the emergency department. I agree with the clinical impression, plan, and disposition. (SHEILA NUÑEZ DO) Problem Qualifiers Primary Impression: Nausea & vomiting Vomiting type: unspecified Vomiting Intractability: unspecified Qualified Codes: R11.2 - Nausea with vomiting, unspecified Additional Impression: Diarrhea Diarrhea type: unspecified type Qualified Codes: R19.7 - Diarrhea, unspecified SHEILA ENGLISH APRN Jul 11, 2019 09:26 SHEILA NUÑEZ DO Jul 11, 2019 20:25
[2019-07-11] MEDS ORDERED: DICYCLOMINE 20 MG/2 ML VIAL. IM ONE (09:30)
[2019-07-11] MEDS ORDERED: ONDANSETRON ODT 4 MG TAB.RAPDIS. PO ONE (09:30)
[2019-07-11 09:31] VITALS: BP 122/58
== END 2019-07-11 09:35 | disposition home or self-care (01) ==
LOC: ER 08:45
DX: R11.2 Nausea with vomiting, unspecified (principal); R19.7 Diarrhea, unspecified; R10.9 Unspecified abdominal pain; J45.909 Unspecified asthma, uncomplicated; F31.9 Bipolar disorder, unspecified; K21.9 Gastro-esophageal reflux disease without esophagitis; F17.200 Nicotine dependence, unspecified, uncomplicated; Z90.89 Acquired absence of other organs
CPT/HCPCS: 96372; 99283; J0500; Q0162

== ENCOUNTER 2019-09-30 21:45 | Emergency (ER) | payer OTHER ==
[~2019-09-30] VITALS: Ht 195.6 cm; Wt 118.1 kg
[~2019-09-30 21:45] MED LIST changes: +DICY10CA3 PO
--- NOTE | 2019-09-30 22:47 | PHYS DOC ---
Past Medical History Past Medical History: Anxiety, Asthma, Bipolar, GERD, Other Additional Past Medical Histor: "special needs",PTSD,ADHD Past Surgical History: Appendectomy, Other Additional Past Surgical Histo: I-DOCKET,BILAT MYRINGOTOMY W/TUBES Smoking Status: Current Every Day Smoker Alcohol Use: Occasionally Drug Use: None General Adult EDM: Chief Complaint: CONSTIPATION HPI: HPI: Patient is a 23 year old male with history of constipation, mentally challenged presenting today complaining of constipation for 5 days. Patient reports left- sided abdominal pain. Reports nausea. Reports occasional vomiting. States he has tried MiraLAX with no relief. Review of Systems: Review of Systems: Constitutional: Denies fever or chills. [] Eyes: Denies change in visual acuity. [] HENT: Denies nasal congestion or sore throat. [] Respiratory: Denies cough or shortness of breath. [] Cardiovascular: Denies chest pain or edema. [] GI: Reports constipation, left-sided abdominal pain with nausea vomiting, denies bloody stools or diarrhea. [] : Denies dysuria. [] Musculoskeletal: Denies back pain or joint pain. [] Integument: Denies rash. [] Neurologic: Denies headache, focal weakness or sensory changes. [] Psychiatric: Denies depression or anxiety. [] Heart Score: Risk Factors: Risk Factors: DM, Current or recent (<one month) smoker, HTN, HLP, family history of CAD, obesity. Risk Scores: Score 0 - 3: 2.5% MACE over next 6 weeks - Discharge Home Score 4 - 6: 20.3% MACE over next 6 weeks - Admit for Clinical Observation Score 7 - 10: 72.7% MACE over next 6 weeks - Early Invasive Strategies Allergies: Allergies: Allergies Coded Allergies Type Severity Reaction Last Updated Verified No Known Drug Allergies 04/22/19 No Physical Exam: PE: Constitutional: Well developed, well nourished, no acute distress, non-toxic appearance. [] HENT: Normocephalic, atraumatic, bilateral external ears normal, oropharynx moist, no oral exudates, nose normal. [] Eyes: PERRLA, EOMI, conjunctiva normal, no discharge. [] Neck: Normal range of motion, no tenderness, supple, no stridor. [] Cardiovascular:Heart rate regular rhythm, no murmur [] Lungs & Thorax: Bilateral breath sounds clear to auscultation [] Abdomen: Bowel sounds normal, soft, no tenderness, no masses, no pulsatile masses. [] Skin: Warm, dry, no erythema, no rash. [] Back: No tenderness, no CVA tenderness. [] Extremities: No tenderness, no cyanosis, no clubbing, ROM intact, no edema. [] Neurologic: Alert and oriented X 3, normal motor function, normal sensory function, no focal deficits noted. [] Psychologic: Affect normal, judgement normal, mood normal. [] EKG: EKG: [] Radiology/Procedures: Radiology/Procedures: []PROCEDURE: ABDOMEN SUPINE & UPRIGHT ABDOMEN SUPINE UPRIGHT Clinical Indication: Reason: constipation / Spl. Instructions: / History: Comparison: Acute abdominal series, 04/29/2019 Findings: There is air throughout the colon. There is a paucity of small bowel air. The lung bases are clear. No evidence of pneumoperitoneum. Question mild splenomegaly. No radiopaque calculus or foreign body. Bones appear stable. IMPRESSION: 1. Nonobstructive bowel gas pattern. 2. Question mild splenomegaly. Electronically signed by: Braydon Machado MD (09/30/2019 10:58 PM) [facility] DICTATED and SIGNED BY: BRAYDON MACHADO MD DATE: 09/30/192257 Course & Med Decision Making: Course & Med Decision Making Pertinent Labs and Imaging studies reviewed. (See chart for details) This is a 23-year-old male patient with history of constipation presenting to the ED today complaining of constipation for 5 days. Abdomen supine and upright x-rays noted for nonobstructive bowel gas pattern.Question mild splenomegaly. Results were discussed with patient. He requested something to drink in the ED. I gave him prune juice which he drank, he also had Sprite and crackers with no nausea vomiting. He also had water. He states he feels better. He was discharged with mag Site-Rite and Gas-X. Educated on constipation. Follow-up with PCP in the course of next week. Dianeon Disclaimer: Carly Disclaimer: This electronic medical record was generated, in whole or in part, using a voice recognition dictation system. Departure Departure Impression: Primary Impression: Constipation Qualified Codes: K59.00 - Constipation, unspecified Additional Impression: Splenomegaly Disposition: 01 HOME, SELF-CARE Condition: STABLE Referrals: JESUS ALLISON MD (PCP) follow up in one week KATH LAZCANO MD follow up in one week Patient Instructions: Constipation, Adult, [id number] Additional Instructions: You were seen for constipation. Increase your dietary fiber intake as well as water intake. Please do not participate in any contact sports. Your spleen is slightly enlarged. Take mag citrate daily for the next 3 days. Follow-up with your own doctor or the provided GI doctor in a week. Scripts Ondansetron (ONDANSETRON ODT) 4 Mg Tab.rapdis 1 TAB PO PRN Q6-8HRS, #16 TAB Prov: CHARLIE MACARIO APRN 09/30/19 Magnesium Citrate (MAGNESIUM CITRATE) 296 Ml Solution 296 ML PO ONCE, #296 ML Prov: CHARLIE MACARIO APRN 09/30/19 Simethicone (GAS-X) 125 Mg Tab.chew 125 MG PO TID PRN for GAS / BLOATING, #10 TAB.CHEW Prov: CHARLIE MACARIO APRN 09/30/19 CHARLIE MACARIO APRN September 30, 2019 22:47
--- NOTE | 2019-09-30 23:01 | RAD ---
ABDOMEN SUPINE UPRIGHT Clinical Indication: Reason: constipation / Spl. Instructions: / History: Comparison: Acute abdominal series, 04/29/2019 Findings: There is air throughout the colon. There is a paucity of small bowel air. The lung bases are clear. No evidence of pneumoperitoneum. Question mild splenomegaly. No radiopaque calculus or foreign body. Bones appear stable. IMPRESSION: 1. Nonobstructive bowel gas pattern. 2. Question mild splenomegaly. Electronically signed by: Braydon Machado MD (09/30/2019 10:58 PM) [facility]
[2019-09-30] MEDS ORDERED: MAGN296S68 PO (23:55)
[2019-09-30] MEDS ORDERED: SIME125T PO (23:55)
[2019-09-30] MEDS ORDERED: ONDA4TAB12 PO (23:57)
[2019-10-01] MEDS ORDERED: ONDANSETRON ODT 4 MG TAB.RAPDIS. PO ONE
[2019-10-01] MEDS ORDERED: SIMETHICONE 80 MG TAB.CHEW PO ONE
[2019-10-01 00:05] VITALS: BP 141/72
== END 2019-10-01 00:05 | disposition home or self-care (01) ==
LOC: ER 21:45
DX: K59.00 Constipation, unspecified (principal); R10.32 Left lower quadrant pain; R11.2 Nausea with vomiting, unspecified; R16.1 Splenomegaly, not elsewhere classified; J45.909 Unspecified asthma, uncomplicated; F31.9 Bipolar disorder, unspecified; F41.9 Anxiety disorder, unspecified; K21.9 Gastro-esophageal reflux disease without esophagitis; F17.200 Nicotine dependence, unspecified, uncomplicated; Z90.89 Acquired absence of other organs; Z98.890 Other specified postprocedural states
CPT/HCPCS: 74021; 99283; Q0162

== ENCOUNTER 2019-10-13 00:05 | Emergency (ER) | payer OTHER ==
[~2019-10-13] VITALS: Ht 193 cm; Wt 134.6 kg
[~2019-10-13 00:05] MED LIST changes: +MAGN296S68 PO; +SIME125T PO
[2019-10-13] MEDS ORDERED: ACETAMINOPHEN 325 MG TABLET. PO ONE (01:00)
[2019-10-13 01:01] VITALS: BP 138/76
[2019-10-13 01:47] LABS: BASO # 0.1 x10^3/uL (0.0-0.2); BASO % 1 % (0-3); EOS # 0.3 x10^3/uL (0.0-0.7); EOS % 2 % (0-3); HEMATOCRIT 45.2 % (39.0-53.0); LYMPH # 3.2 x10^3/uL (1.0-4.8); LYMPH % 26 % (24-48); MEAN CORPUSCULAR HEMOGLOBIN 26 pg (25-35); MEAN CORPUSCULAR HGB CONC 33 g/dL (31-37); MEAN CORPUSCULAR VOLUME 80 fL (79-100); MONO # 0.6 x10^3/uL (0.0-1.1); MONO % 5 % (0-9); NEUT # 7.9 x10^3/uL (1.8-7.7); NEUT % 66 % (31-73); PLATELET COUNT 313 x10^3/uL (140-400); RED BLOOD COUNT 5.67 x10^6/uL (4.30-5.70); RED CELL DISTRIBUTION WIDTH 14.7 % (11.5-14.5)
[2019-10-13 01:52] LABS: BARBITURATES NEG (NEG); BENZODIAZEPINES NEG (NEG); CANNABINOIDS NEG (NEG); COCAINE NEG (NEG); METHADONE NEG (NEG); OPIATES NEG (NEG); PHENCYCLIDINE NEG (NEG)
[2019-10-13 01:53] LABS: AMPHETAMINE/METHAMPHETAMINE NEG (NEG)
[2019-10-13 01:56] LABS: CREATININE 1.5 mg/dL (0.7-1.3); GFR 59.1; POTASSIUM 3.3 mmol/L (3.5-5.1)
[2019-10-13 01:58] LABS: ALBUMIN 3.9 g/dL (3.4-5.0); ALBUMIN/GLOBULIN RATIO 1.1 (1.0-1.7); TOTAL BILIRUBIN 0.1 mg/dL (0.2-1.0); TOTAL PROTEIN 7.5 g/dL (6.4-8.2)
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
== END 2019-10-13 04:57 | disposition home or self-care (01) ==
LOC: ER 00:05
DX: S60.512A Abrasion of left hand, initial encounter (principal); J45.909 Unspecified asthma, uncomplicated; F41.9 Anxiety disorder, unspecified; K21.9 Gastro-esophageal reflux disease without esophagitis; F17.200 Nicotine dependence, unspecified, uncomplicated; E66.9 Obesity, unspecified; F31.9 Bipolar disorder, unspecified; Z90.89 Acquired absence of other organs; Z68.36 Body mass index [BMI] 36.0-36.9, adult; Z98.890 Other specified postprocedural states; X78.8XXA Intentional self-harm by other sharp object, initial encounter; Y93.89 Activity, other specified; Y92.89 Other specified places as the place of occurrence of the external cause; Y99.8 Other external cause status
CPT/HCPCS: 36415; 80053; 80307; 85025; 99284; G0480

== ENCOUNTER 2020-02-18 21:28 | Emergency (ER) | payer OTHER ==
[~2020-02-18] VITALS: Ht 182.9 cm; Wt 113.6 kg
--- NOTE | 2020-02-18 21:59 | PHYS DOC ---
Past Medical History Past Medical History: Anxiety, Asthma, Bipolar, GERD, Other Additional Past Medical Histor: "special needs",PTSD,ADHD Past Surgical History: Appendectomy, Other Additional Past Surgical Histo: I-DOCKET,BILAT MYRINGOTOMY W/TUBES Smoking Status: Current Every Day Smoker Alcohol Use: None Drug Use: None General Adult EDM: Chief Complaint: NAUSEA/VOMITING/DIARRHA HPI: HPI: Patient is a 24 year old presents with a chief complaint of accidental overdose. Patient states he feels nauseous and dizzy. Patient tells me prior to arrival he smoked 1 g of marijuana. Patient states he smoked marijuana around 2130 hrs. Patient states he had associated nausea and vomiting. Patient is alert and oriented x4. Review of Systems: Review of Systems: Constitutional: Denies fever or chills. [] Eyes: Denies change in visual acuity. [] HENT: Denies nasal congestion or sore throat. [] Respiratory: Denies cough or shortness of breath. [] Cardiovascular: Denies chest pain or edema. [] GI: Denies abdominal pain, , vomiting, bloody stools or diarrhea. [positive nausea] : Denies dysuria. [] Musculoskeletal: Denies back pain or joint pain. [] Integument: Denies rash. [] Neurologic: Denies headache, focal weakness or sensory changes. [] Endocrine: Denies polyuria or polydipsia. [] Lymphatic: Denies swollen glands. [] Psychiatric: Denies depression or anxiety. [] Heart Score: Risk Factors: Risk Factors: DM, Current or recent (<one month) smoker, HTN, HLP, family history of CAD, obesity. Risk Scores: Score 0 - 3: 2.5% MACE over next 6 weeks - Discharge Home Score 4 - 6: 20.3% MACE over next 6 weeks - Admit for Clinical Observation Score 7 - 10: 72.7% MACE over next 6 weeks - Early Invasive Strategies Allergies: Allergies: Allergies Coded Allergies Type Severity Reaction Last Updated Verified No Known Drug Allergies 04/22/19 No Physical Exam: PE: Constitutional: Well developed, well nourished, no acute distress, non-toxic appearance. [] HENT: Normocephalic, atraumatic, bilateral external ears normal, oropharynx moist, no oral exudates, nose normal. [] Eyes: PERRLA, EOMI, conjunctiva normal, no discharge. [] Neck: Normal range of motion, no tenderness, supple, no stridor. [] Cardiovascular:Heart rate regular rhythm, no murmur [] Lungs & Thorax: Bilateral breath sounds clear to auscultation [] Abdomen: Bowel sounds normal, soft, no tenderness, no masses, no pulsatile masses. [] Skin: Warm, dry, no erythema, no rash. [] Back: No tenderness, no CVA tenderness. [] Extremities: No tenderness, no cyanosis, no clubbing, ROM intact, no edema. [] Neurologic: Alert and oriented X 3, normal motor function, normal sensory function, no focal deficits noted. [] Psychologic: Affect normal, judgement normal, mood normal. [] EKG: EKG: [] Radiology/Procedures: Radiology/Procedures: [] Course & Med Decision Making: Course & Med Decision Making Pertinent Labs and Imaging studies reviewed. (See chart for details) [] Patient was evaluated for chief complaint. Based upon history of present illness and physical exam no need for any emergent lab or radiologic imaging. Patient was observed. He slept in the emergency department for greater than 2 hours. Patient was awakened he is alert and oriented x4. He was discharged home. [employer] Disclaimer: [employer] Disclaimer: This electronic medical record was generated, in whole or in part, using a voice recognition dictation system. Departure Departure Impression: Primary Impression: Overdose Additional Impression: Tetrahydrocannabinol (THC) dependence Disposition: 01 DC HOME SELF CARE/HOMELESS Condition: STABLE Referrals: JESUS ALLISON MD (PCP) Patient Instructions: Overdose, Accidental CARLOS DORAN I DO Feb 18, 2020 21:59
[2020-02-18] MEDS ORDERED: ONDANSETRON ODT 4 MG TAB.RAPDIS. PO ONE (22:15)
[2020-02-19 05:20] VITALS: BP 104/54
== END 2020-02-19 05:45 | disposition home or self-care (01) ==
LOC: ER 21:28
DX: T40.7X1A Poisoning by cannabis (derivatives), accidental (unintentional), initial encounter (principal); R11.2 Nausea with vomiting, unspecified; R42 Dizziness and giddiness; F31.9 Bipolar disorder, unspecified; K21.9 Gastro-esophageal reflux disease without esophagitis; J45.909 Unspecified asthma, uncomplicated; F41.9 Anxiety disorder, unspecified; F17.200 Nicotine dependence, unspecified, uncomplicated; F90.9 Attention-deficit hyperactivity disorder, unspecified type; F43.10 Post-traumatic stress disorder, unspecified; Z90.89 Acquired absence of other organs; Y92.89 Other specified places as the place of occurrence of the external cause
CPT/HCPCS: 99285-25